=== PATIENT | male | born 1960 | race Caucasian/White ===

== ENCOUNTER 2019-01-19 06:20 | Inpatient (IN) | payer OTHER ==
[~2019-01-19] VITALS: Ht 185.4 cm; Wt 94.2 kg
--- NOTE | 2019-01-19 07:01 | NUR ---
CHARITYAR RPT REC'D FROM [facility] AND ASSUMED PT CARE. DR. DOWLING AT BEDSIDE, ASSESSMENT REVIEWED AND ORDERS REC'D.
[2019-01-19] MEDS ORDERED: HYDROmorphone 1 MG/ML, 1ML VIAL ONE ×2 (07:02→08:24)
[2019-01-19] MEDS: HYDROmorphone 1 MG/ML, 1ML VIAL IVPush PRN ×2 (07:03→08:25)
[2019-01-19] MEDS ORDERED: ONDANSETRON 2MG/ML, 2ML ONE (07:03)
--- NOTE | 2019-01-19 07:09 | NUR ---
PT MED NOTED FOR PAIN. CALL LIGHT W/I REACH AND AT BEDSIDE. VSS.
[2019-01-19] MEDS ORDERED: ONDANSETRON 2MG/ML, 2ML IVPush ONE (07:30)
[2019-01-19] MEDS ORDERED: SODIUM CHLORIDE FLUSH 10ML SYR IVF ONE (07:30)
[2019-01-19 07:32] LABS: BASOPHILS # (AUTO) 0.04 x10^3/uL (0-0.1); BASOPHILS % (AUTO) 1 % (0-1); EOSINOPHILS % (AUTO) 6 % (1-7); LYMPHOCYTES # (AUTO) 3.26 x10^3/uL (1-3.4); LYMPHOCYTES % (AUTO) 37 % (22-44); MD NO; MEAN CORPUSCULAR HEMOGLOBIN 31.4 pg (27.5-34.5); MEAN CORPUSCULAR HGB CONC 33.9 g/dL (33.2-36.2); MEAN CORPUSCULAR VOLUME 92.8 fL (81-97); MEAN PLATELET VOLUME 8.1 fL (7.4-10.4); MONOCYTES # (AUTO) 0.73 x10^3/uL (0.2-0.8); MONOCYTES % (AUTO) 8 % (2-9); NEUTROPHILS # (AUTO) 4.21 x10^3/uL (1.8-6.8); NEUTROPHILS % (AUTO) 48 % (42-75); PLATELET COUNT 180 x10^3/uL (130-400); RED CELL DISTRIBUTION WIDTH 12.6 % (9.4-14.8)
--- NOTE | 2019-01-19 07:39 | NUR ---
PT RA SP02 DROPS TO 86% AFTER REC'D DILAUDID, 02 2L NC PLACED WITH EFFECT. PT RATES PAIN NOW 4/10 AND APPEARS MORE COMFORTABLE. TEST RESULTS PENDING
[2019-01-19 07:42] LABS: ALANINE AMINOTRANSFERASE 39 U/L (12-78); ALBUMIN 4.2 g/dL (3.4-5.0); ANION GAP 10 mmol/L (5-15); CALCIUM 9.1 mg/dL (8.5-10.1); CHLORIDE 109 mmol/L (98-107); CREATININE 1.13 mg/dL (0.7-1.3)
[2019-01-19 07:44] LABS: ALKALINE PHOSPHATASE 110 U/L (45-117); BILIRUBIN,TOTAL 1.4 mg/dL (0.2-1.0); TOTAL PROTEIN 7.3 g/dL (6.4-8.2)
--- NOTE | 2019-01-19 07:46 | NUR ---
CT WAITING FOR LAB RESULTS
[2019-01-19] MEDS ORDERED: OMNIPAQUE 350 MG/ML, 100ML BOTTLE ONE (08:07)
--- NOTE | 2019-01-19 08:11 | NUR ---
PT OOB AMBULATED TO BATHROOM, UPRIGHT STEADY GAIT. INSTRUCTED ON CLEAN CATCH URINE COLLECTION
--- NOTE | 2019-01-19 08:27 | NUR ---
PT RTD TO ROOM W/O INCIDENT, URINE SENT TO LAB. PT REQUESTS ADDITIONAL PAIN MEDICATION. PAIN 06/11. CALL LIGHT W/I REACH
[2019-01-19 08:31] LABS: MICROSCOPIC NOT IND
[2019-01-19 08:39] LABS: CULTURE INDICATED? NO
--- NOTE | 2019-01-19 09:36 | NUR ---
REPORT RECEIVED FROM FRANCESCA FISHMAN AT BEDSIDE, PT IS AWAKE, ALERT AND ORIENTED. PT DENIES PAIN. MD DOWLING REVIEWED CT RESULTS WITH PT, AWAITING FURTHER ORDERS S/P CXR. PT UPDATED WITH POC.
[2019-01-19] MEDS ORDERED: NIAC-1 PO (10:16)
[2019-01-19] MEDS ORDERED: OMEP-110 PO (10:16)
[2019-01-19] MEDS ORDERED: [UNRECOGNIZED DRUG - OTHER] PO (10:16)
[2019-01-19] MEDS ORDERED: VITAMIN D PO (10:16)
[2019-01-19] MEDS ORDERED: FISH OIL PO (10:16)
--- NOTE | 2019-01-19 10:21 | NUR ---
LAB AT BEDSIDE TO DRAW CULTURE, PT UPDATED WITH POC. MED REC UPDATED FOR ADMISSION.
[2019-01-19] MEDS ORDERED: CEFOTETAN PMX 1GM/50ML 50 ML ONE (10:23)
--- NOTE | 2019-01-19 10:29 | NUR ---
BLOOD CULTURE DRAWN X 1 PRIOR TO START OF CEFOTETAN, PER MD DOWLING, ONLY ONE BLOOD CULTURE IS INIDICATED PRIOR TO START OF ABX.
[2019-01-19] MEDS ORDERED: CEFOTETAN PMX 1GM/50ML 50 ML IV ONE (10:30)
--- NOTE | 2019-01-19 10:57 | NUR ---
REPORT CALLED TO RECEIVING MEDICAL RN ALEX. PT AWAITING TRANSPORT TO ROOM [id number].
[2019-01-19] MEDS ORDERED: SODIUM CHLORIDE 0.9% 1,000 ML IV SCH (11:06)
[2019-01-19] MEDS ORDERED: METOCLOPRAMIDE 5 MG/ML, 2ML IVPush PRN (11:30)
[2019-01-19] MEDS ORDERED: LABETALOL 5MG/ML, 20ML IVPush PRN (11:30)
[2019-01-19] MEDS ORDERED: ONDANSETRON 2MG/ML, 2ML IVPush PRN (11:30)
[2019-01-19] MEDS ORDERED: hydrALAzine 20 MG/ML, 1ML IVPush PRN (11:30)
[2019-01-19] MEDS: HYDROmorphone 2 MG/ML, 1ML IVPush PRN ×2 (11:43→17:18)
[2019-01-19] MEDS ORDERED: PANTOPRAZOLE 40 MG IV IVPush SCH ×2 (13:00→21:00)
[2019-01-19] MEDS ORDERED: PANTOPRAZOLE 40 MG IV ONE (13:38)
[2019-01-19 13:56] VITALS: BP 137/86
[2019-01-19] MEDS: NS + 40MEQ KCL 1,000 ML IV SCH (14:05)
[2019-01-19] MEDS: PANTOPRAZOLE 80 MG in SODIUM CHLORIDE 0.9% 100 ML IV SCH ×2 (14:09→22:35)
[2019-01-19] MEDS: PIPERACILLIN/TAZO/PMX 3.375GM 50 ML IV SCH ×2 (14:18→19:54)
[2019-01-19] MEDS: HEPARIN 5,000 UNITS/ML, 1ML SQ SCH (17:13)
[2019-01-19 18:46] VITALS: BP 147/81
[2019-01-20] MEDS: HYDROmorphone 2 MG/ML, 1ML IVPush PRN ×5 (00:06→18:14)
[2019-01-20] MEDS: HEPARIN 5,000 UNITS/ML, 1ML SQ SCH ×3 (00:06→17:45)
[2019-01-20 00:38] VITALS: BP 113/62
[2019-01-20] MEDS: PIPERACILLIN/TAZO/PMX 3.375GM 50 ML IV SCH ×4 (01:32→23:31)
[2019-01-20] MEDS: NS + 40MEQ KCL 1,000 ML IV SCH ×2 (01:32→13:18)
[2019-01-20 05:17] LABS: BASOPHILS # (AUTO) 0.01 x10^3/uL (0-0.1); BASOPHILS % (AUTO) 0 % (0-1); EOSINOPHILS % (AUTO) 0 % (1-7); LYMPHOCYTES # (AUTO) 0.62 x10^3/uL (1-3.4); LYMPHOCYTES % (AUTO) 6 % (22-44); MD NO; MEAN CORPUSCULAR HEMOGLOBIN 31.7 pg (27.5-34.5); MEAN CORPUSCULAR HGB CONC 33.4 g/dL (33.2-36.2); MEAN CORPUSCULAR VOLUME 94.9 fL (81-97); MEAN PLATELET VOLUME 8.2 fL (7.4-10.4); MONOCYTES # (AUTO) 0.57 x10^3/uL (0.2-0.8); MONOCYTES % (AUTO) 5 % (2-9); NEUTROPHILS # (AUTO) 9.92 x10^3/uL (1.8-6.8); NEUTROPHILS % (AUTO) 89 % (42-75); PLATELET COUNT 149 x10^3/uL (130-400); RED BLOOD COUNT 5.39 x10^6/uL (4.38-5.82); RED CELL DISTRIBUTION WIDTH 13.4 % (9.4-14.8)
[2019-01-20 05:31] LABS: ALANINE AMINOTRANSFERASE 29 U/L (12-78); ALBUMIN 3.4 g/dL (3.4-5.0); ANION GAP 11 mmol/L (5-15); CALCIUM 8.7 mg/dL (8.5-10.1); CHLORIDE 112 mmol/L (98-107); CREATININE 1.36 mg/dL (0.7-1.3)
[2019-01-20 05:33] LABS: ALKALINE PHOSPHATASE 72 U/L (45-117); BILIRUBIN,TOTAL 2.5 mg/dL (0.2-1.0); TOTAL PROTEIN 6.5 g/dL (6.4-8.2)
[2019-01-20 07:14] VITALS: BP 126/79
[2019-01-20] MEDS ORDERED: SODIUM CHLORIDE 0.9% 1,000 ML IV SCH (09:30)
[2019-01-20] MEDS: PANTOPRAZOLE 80 MG in SODIUM CHLORIDE 0.9% 100 ML IV SCH ×2 (10:05→21:35)
[2019-01-20] MEDS: FLUCONAZOLE 200 MG/100 ML 100 ML IV SCH (12:18)
[2019-01-20 13:22] VITALS: BP 122/75
[2019-01-20 19:37] VITALS: BP 121/71
[2019-01-21 00:26] VITALS: BP 138/79
[2019-01-21] MEDS: HYDROmorphone 2 MG/ML, 1ML IVPush PRN ×3 (00:44→14:24)
[2019-01-21] MEDS: HEPARIN 5,000 UNITS/ML, 1ML SQ SCH ×3 (01:54→20:47)
[2019-01-21] MEDS: PIPERACILLIN/TAZO/PMX 3.375GM 50 ML IV SCH ×3 (05:27→17:16)
[2019-01-21 05:54] LABS: ALANINE AMINOTRANSFERASE 24 U/L (12-78); ALBUMIN 2.7 g/dL (3.4-5.0); ANION GAP 6 mmol/L (5-15); CHLORIDE 112 mmol/L (98-107); CREATININE 0.95 mg/dL (0.7-1.3)
[2019-01-21 05:55] LABS: BASOPHILS % (AUTO) 0 % (0-1); EOSINOPHILS # (AUTO) 0.01 x10^3/uL (0-0.4); EOSINOPHILS % (AUTO) 0 % (1-7); LYMPHOCYTES % (AUTO) 8 % (22-44); MD NO; MEAN CORPUSCULAR HEMOGLOBIN 31.5 pg (27.5-34.5); MEAN CORPUSCULAR HGB CONC 33.9 g/dL (33.2-36.2); MEAN CORPUSCULAR VOLUME 92.8 fL (81-97); MEAN PLATELET VOLUME 7.9 fL (7.4-10.4); MONOCYTES # (AUTO) 0.43 x10^3/uL (0.2-0.8); MONOCYTES % (AUTO) 7 % (2-9); NEUTROPHILS # (AUTO) 5.33 x10^3/uL (1.8-6.8); NEUTROPHILS % (AUTO) 85 % (42-75); PLATELET COUNT 115 x10^3/uL (130-400); RED BLOOD COUNT 4.78 x10^6/uL (4.38-5.82); RED CELL DISTRIBUTION WIDTH 13.5 % (9.4-14.8)
[2019-01-21 05:56] LABS: ALKALINE PHOSPHATASE 48 U/L (45-117); BILIRUBIN,TOTAL 1.9 mg/dL (0.2-1.0)
[2019-01-21 08:00] VITALS: BP 123/77
[2019-01-21] MEDS: PANTOPRAZOLE 80 MG in SODIUM CHLORIDE 0.9% 100 ML IV SCH ×2 (08:24→17:17)
[2019-01-21] MEDS: FLUCONAZOLE 200 MG/100 ML 100 ML IV SCH (11:22)
[2019-01-21 12:28] LABS: HIT RESULT NEGATIVE (NEGATIVE)
[2019-01-21] MEDS: NS + 40MEQ KCL 1,000 ML IV SCH ×2 (12:36→23:11)
[2019-01-21 14:19] VITALS: BP 135/87
[2019-01-21] MEDS ORDERED: OMNIPAQUE 350 MG/ML, 150 ML BOTTLE ONE (17:03)
[2019-01-21 18:30] VITALS: BP 139/88
[2019-01-21] MEDS: ACETAMINOPHEN 325 MG TABLET PO PRN (21:03)
[2019-01-22] MEDS: PIPERACILLIN/TAZO/PMX 3.375GM 50 ML IV SCH ×4 (00:04→18:30)
[2019-01-22] MEDS: PANTOPRAZOLE 80 MG in SODIUM CHLORIDE 0.9% 100 ML IV SCH ×3 (00:29→23:08)
[2019-01-22 00:38] VITALS: BP 122/79
[2019-01-22] MEDS: HEPARIN 5,000 UNITS/ML, 1ML SQ SCH ×2 (05:14→14:01)
[2019-01-22 05:39] LABS: MEAN CORPUSCULAR HEMOGLOBIN 31.4 pg (27.5-34.5); MEAN CORPUSCULAR HGB CONC 33.6 g/dL (33.2-36.2); MEAN CORPUSCULAR VOLUME 93.4 fL (81-97); MEAN PLATELET VOLUME 7.8 fL (7.4-10.4); PLATELET COUNT 108 x10^3/uL (130-400); RED BLOOD COUNT 4.53 x10^6/uL (4.38-5.82); RED CELL DISTRIBUTION WIDTH 12.9 % (9.4-14.8)
[2019-01-22 05:47] LABS: CHLORIDE 111 mmol/L (98-107)
[2019-01-22 06:06] LABS: ALANINE AMINOTRANSFERASE 19 U/L (12-78); ALBUMIN 2.4 g/dL (3.4-5.0); ALKALINE PHOSPHATASE 45 U/L (45-117); ANION GAP 7 mmol/L (5-15); BILIRUBIN,TOTAL 1.2 mg/dL (0.2-1.0); CALCIUM 8.6 mg/dL (8.5-10.1); CREATININE 0.73 mg/dL (0.7-1.3); TOTAL PROTEIN 5.7 g/dL (6.4-8.2)
[2019-01-22 06:33] LABS: BASOPHILS # (AUTO) 0.01 x10^3/uL (0-0.1); BASOPHILS % (AUTO) 0 % (0-1); EOSINOPHILS # (AUTO) 0.07 x10^3/uL (0-0.4); EOSINOPHILS % (AUTO) 1 % (1-7); LYMPHOCYTES # (AUTO) 0.67 x10^3/uL (1-3.4); LYMPHOCYTES % (AUTO) 11 % (22-44); MD NO; MONOCYTES # (AUTO) 0.45 x10^3/uL (0.2-0.8); MONOCYTES % (AUTO) 8 % (2-9); NEUTROPHILS # (AUTO) 4.71 x10^3/uL (1.8-6.8); NEUTROPHILS % (AUTO) 80 % (42-75)
[2019-01-22] MEDS ORDERED: FLU VACC QS2019-20 36MOS UP/PF 0.5 ML IM-VACC ONE (07:00)
[2019-01-22 07:21] VITALS: BP 143/82
[2019-01-22] MEDS: FLUCONAZOLE 200 MG/100 ML 100 ML IV SCH (10:00)
[2019-01-22] MEDS: NS + 40MEQ KCL 1,000 ML IV SCH ×2 (11:17→22:54)
[2019-01-22 13:49] VITALS: BP 146/79
[2019-01-22] MEDS: ACETAMINOPHEN 325 MG TABLET PO PRN (14:14)
[2019-01-22 18:37] VITALS: BP 135/89
[2019-01-23] MEDS: PIPERACILLIN/TAZO/PMX 3.375GM 50 ML IV SCH ×3 (00:07→12:19)
[2019-01-23] MEDS: NS + 40MEQ KCL 1,000 ML IV SCH (05:56)
[2019-01-23 06:24] LABS: BASOPHILS % (AUTO) 0 % (0-1); EOSINOPHILS # (AUTO) 0.11 x10^3/uL (0-0.4); EOSINOPHILS % (AUTO) 2 % (1-7); LYMPHOCYTES # (AUTO) 0.69 x10^3/uL (1-3.4); LYMPHOCYTES % (AUTO) 10 % (22-44); MD NO; MEAN CORPUSCULAR HEMOGLOBIN 31.7 pg (27.5-34.5); MEAN CORPUSCULAR HGB CONC 33.5 g/dL (33.2-36.2); MEAN CORPUSCULAR VOLUME 94.7 fL (81-97); MEAN PLATELET VOLUME 8.4 fL (7.4-10.4); MONOCYTES # (AUTO) 0.72 x10^3/uL (0.2-0.8); MONOCYTES % (AUTO) 10 % (2-9); NEUTROPHILS # (AUTO) 5.64 x10^3/uL (1.8-6.8); NEUTROPHILS % (AUTO) 79 % (42-75); PLATELET COUNT 116 x10^3/uL (130-400); RED BLOOD COUNT 4.17 x10^6/uL (4.38-5.82); RED CELL DISTRIBUTION WIDTH 13.1 % (9.4-14.8)
[2019-01-23 06:32] LABS: ANION GAP 6 mmol/L (5-15); CALCIUM 8.1 mg/dL (8.5-10.1); CHLORIDE 110 mmol/L (98-107); CREATININE 0.73 mg/dL (0.7-1.3)
[2019-01-23 08:00] VITALS: BP 138/87
[2019-01-23] MEDS ORDERED: POTASSIUM PHOSPHATE 44 MEQ in SODIUM CHLORIDE 0.9% 500 ML IV ONE (09:00)
[2019-01-23] MEDS ORDERED: MAGNESIUM SULFATE PMX 2GM/50ML 50 ML IV ONE (09:00)
[2019-01-23] MEDS: FLUCONAZOLE 200 MG/100 ML 100 ML IV SCH (09:46)
[2019-01-23] MEDS: PANTOPRAZOLE 80 MG in SODIUM CHLORIDE 0.9% 100 ML IV SCH (10:22)
[2019-01-23 14:05] VITALS: BP 128/74
[2019-01-23] MEDS ORDERED: PANT40TA3 PO (15:37)
== END 2019-01-23 17:16 | disposition home or self-care (01) | DRG 380 ==
LOC: ED 09:35 → EDIP 09:55 → 3N 11:21
PROVIDERS: ADMIT Family Medicine; ATTEND Hospitalist
PROC: 0D9670Z Drainage of Stomach with Drainage Device, Via Natural or Artificial Opening (ICD-10-PCS; principal; 2019-01-19)
DX: K26.5 Chronic or unspecified duodenal ulcer with perforation (principal); J96.00 Acute respiratory failure, unspecified whether with hypoxia or hypercapnia; N17.0 Acute kidney failure with tubular necrosis; K56.0 Paralytic ileus; D69.6 Thrombocytopenia, unspecified; D72.829 Elevated white blood cell count, unspecified; E87.6 Hypokalemia; F17.210 Nicotine dependence, cigarettes, uncomplicated; I10 Essential (primary) hypertension; K21.9 Gastro-esophageal reflux disease without esophagitis; K57.10 Diverticulosis of small intestine without perforation or abscess without bleeding; F10.21 Alcohol dependence, in remission; R73.9 Hyperglycemia, unspecified; E83.42 Hypomagnesemia; E83.39 Other disorders of phosphorus metabolism; R00.0 Tachycardia, unspecified; Z87.11 Personal history of peptic ulcer disease
CPT/HCPCS: 36415; 71045; 74018; 74021; 74177; 74241; 80048; 80053; 81003; 83036; 83605; 83735; 84100; 85025; 86022; 87040; 87338; 90686; 93005; 96365; 96375; G0378; J1170; J1644; J2405; J2543; Q9967; C9113; J1450; J3475; J3480; J3490; J7030; J7040